=== PATIENT | male | born 1945 | race Caucasian/White ===

== ENCOUNTER 2018-10-17 05:47 | Inpatient (IN) | payer MEDICARE ==
[~2018-10-17] VITALS: Ht 182.9 cm; Wt 84.1 kg
[2018-10-17 06:36] LABS: Hemoglobin 18.6 g/dL (13.5-17.5); Mean Corpuscular HGB 29.3 pg (26.0-34.0); Mean Corpuscular HGB Conc 33.5 g/dL (31.5-36.5); Mean Corpuscular Volume 88 fL (80-100); Mean Platelet Volume 10.7 fL (9.1-12.4); Platelet Count 210 K/mm3 (150-400); RDW Coefficient Variation 12.8 % (11.7-14.2); RDW Standard Deviation 41.6 fL (35.1-46.3); Red Blood Cell Count 6.34 M/mm3 (4.30-5.90); White Blood Cell Count 11.59 K/mm3 (4.00-11.30)
[2018-10-17 06:44] LABS: Hematocrit 55.5 % (37.0-53.0)
[2018-10-17 06:49] LABS: Alanine Aminotransfer (ALT/SGP 26 U/L (12-78); Albumin, Blood 2.1 g/dL (3.4-5.0); Albumin/Globulin Ratio 0.4 (0.8-1.8); Alk Phos 77 U/L (50-136); Anion Gap 15 mmol/L (6-16); Aspartate Aminotrans (AST/SGOT 49 U/L (12-37); Blood Urea Nitrogen 29 mg/dL (8-24); Bun/Creatinine Ratio 39.3 (12.0-20.0); CO2, Blood 21 mmol/L (21-32); Calcium, Blood 9.7 mg/dL (8.5-10.1); Chloride, Blood 97 mmol/L (98-108); Creatinine, Blood 0.74 mg/dL (0.60-1.20); Globulin, Blood 4.9 g/dL (2.2-4.0); Glomerular Filtration Rate >60 (60-); Glucose, Blood 423 mg/dL (70-99); Potassium, Blood 4.7 mmol/L (3.5-5.5); Sodium, Blood 133 mmol/L (136-145)
[2018-10-17 08:03] LABS: BAND PERCENT MAN 17 % (0-8); BASOPHILS PERCENT MAN 0 % (0-2); EOSINOPHILS PERCENT MAN 0 % (0-6); LYMPHOCYTES ABSOLUTE MAN 1.62 K/mm3 (0.84-5.20); LYMPHOCYTES PERCENT MAN 14 % (21-46); MONOCYTES ABSOLUTE MAN 0.81 K/mm3 (0.16-1.47); MONOCYTES PERCENT MAN 7 % (4-13); NEUTROPHILS ABSOLUTE MAN 9.15 K/mm3 (1.96-9.15); SEG NEUTROPHILS PERCENT MAN 62 % (41-73); TOTAL CELLS COUNTED 100
--- NOTE | 2018-10-17 10:00 | NUR ---
ASSUMED CARE: PT NEW ADMIT FROM ED FOR INFECTION. VSS BUT TACHYCARDIA NOTED WITH HR IN 130S-150S. WOUND NOTED TO LEFT HEEL, MALODOROUS. SEE WOUND CARE CHARTING. DR LIND HERE TO SEE PT, PT'S ALSO AT BEDSIDE.
--- NOTE | 2018-10-17 11:30 | NUR ---
DR LIND NOTIFED REGARDING PT'S CRITICAL LACTIC ACID. DR ALSO AWARE OF INCREASED HR IN 130S-140S. DR ORDERED FOR 1L BOLUS TO BE GIVEN.
--- NOTE | 2018-10-17 12:52 | NUR ---
PT TAKEN TO MRI. CHARGE NURSE ACCOMPANYING.
--- NOTE | 2018-10-17 12:52 | NUR ---
CHARGE NURSE NOTE: PATIENT TRANSPORTED TO MRI ON MONITOR. MONITOR AND LEADS REMOVED FOR MRI. OVERHEAD LIFT USED TO TRANSFER PT TO MRI TABLE. THIS RN STANDING BY OUTSIDE THE ROOM DURING ANTICIPATED 1 HOUR MRI. FibeRio VERIFIED MRI FORM WITH PATIENT.
--- NOTE | 2018-10-17 14:46 | NUR ---
PT STATES HIS PAIN IS 6/10. MEDICATED FOR THIS. AREA ON TOP OF FOOT NOTED TO SEEM MORE BLACK IN CENTER AND AREA IN TOES BETWEEN FIRST JOINT AND FOOT IS BECOMING A DARKER RED, ALMOST BURGANDY COLOR. DISCUSSED WITH DIAGNOSTIC TECH AND CALL TO DR PERKINS WHO PLANS TO TAKE PT TO OR TOMORROW. TOLD HIM ABOUT HR AND HE STATED THAT THAT IS UP TO HOSPITALIST. CALLED DR LIND AND MADE HER AWARE AND ALSO LET HER KNOW THAT PT IS IN AFIB. STATES SHE WILL ORDER SOME MEDS FOR THIS. HR CURRENTLY IN 120S-130S. PT RESTING AT THIS TIME.
[2018-10-17 16:25] LABS: Hematocrit 44.8 % (37.0-53.0); Hemoglobin 14.8 g/dL (13.5-17.5); Mean Corpuscular HGB 29.4 pg (26.0-34.0); Mean Corpuscular Volume 89 fL (80-100); Platelet Count 265 K/mm3 (150-400); RDW Coefficient Variation 12.9 % (11.7-14.2); RDW Standard Deviation 42.3 fL (35.1-46.3); Red Blood Cell Count 5.04 M/mm3 (4.30-5.90); White Blood Cell Count 9.99 K/mm3 (4.00-11.30)
--- NOTE | 2018-10-17 16:47 | NUR ---
PT TAKEN TO OR. ACCOMPANYING. PT ESCORTED VIA BED BY CHRISTIAN HODGE.
[2018-10-17 17:00] LABS: BAND PERCENT MAN 12 % (0-8); BASOPHILS ABSOLUTE MAN 0.09 K/mm3 (0.00-0.23); BASOPHILS PERCENT MAN 1 % (0-2); EOSINOPHILS PERCENT MAN 0 % (0-6); LYMPHOCYTES % ATYPICAL MANUAL 3 % (0-0); LYMPHOCYTES ABSOLUTE MAN 1.19 K/mm3 (0.84-5.20); LYMPHOCYTES PERCENT MAN 9 % (21-46); METAMYELOCYTE ABSOLUTE MAN 0.09 K/mm3 (0.00-0.00); METAMYELOCYTE PERCENT MAN 1 % (0-0); MONOCYTES ABSOLUTE MAN 0.69 K/mm3 (0.16-1.47); MONOCYTES PERCENT MAN 7 % (4-13); NEUTROPHILS ABSOLUTE MAN 7.89 K/mm3 (1.96-9.15); SEG NEUTROPHILS PERCENT MAN 67 % (41-73); TOTAL CELLS COUNTED 100
--- NOTE | 2018-10-17 17:54 | NUR ---
10/17/18 1607 Ishan Craven PT HAD REDDED HARD SKIN RASH APPEARANCE TO THE POSTERIOR THIGH SKIN. HIS ENTIRE LEG WAS WARM TO TOUCH. AWARE OF SKIN APPEARANCE PIOR TO START OF SURGERY.
--- NOTE | 2018-10-17 18:15 | NUR ---
SHIFT SUMMARY: PT IS STILL IN OR AT THIS TIME. PT'S AND FAMILY LEFT FOR THE EVENING. AWAITING REPORT FROM OR UPON COMPLETION OF SURGERY
--- NOTE | 2018-10-17 19:29 | NUR ---
PT TO ROOM ICU 10 POST OP AT 1900. PT ARRIVES SEDATED WITH NON-REBREATHER 10L SATS 97%. CURTIS. BP STABLE. HR 130'S. PT FEBRILE WITH TEMP 100.1. DRESSING TO LLE DCI WITH NO DRAINAGE NOTED AT TIME OF INITIAL ASSESSMENT. PT SKIN PWD. PT BEGAN AWAKENING REACHING UP TO REMOVE NON-REBREATHER [id number]. NON-REBREATHER REMOVED WITH 6L VIA N/C PLACED. PT FOLLOWING COMMANDS BUT IS STIL QUIT DROWSY. PT'S SPOUSE TO BEDSIDE AT THIS TIME. DR. PERKINS NOTIFIED PER SPECIAL EDUCATION TEACHERSNAVEEN WAGONER WELL DR. FAUSTIN. DR. PERKINS TO BE NOTIFED WHEN DR. FAUSTIN TO BEDSIDE. WILL CONTINUE TO MONITOR.
--- NOTE | 2018-10-17 19:58 | NUR ---
TEMP LARRY PLACED. PT TOLERATED WELL. FAMILY BROUGHT BACK TO BEDSIDE. DR. FAUSTIN IN DEPT. CALL TO DR. VINSON PER BUSINESS SOLUTION ANALYST.
--- NOTE | 2018-10-17 20:44 | NUR ---
DR. PERKINS AND DR. FAUSTIN TO BEDSIDE. SPOKE WITH FAMILY AT 2017. PT TO TRANSFER TO HIGHER LEVEL OF CARE. FAMILY VERBALIZED UNDERSTANDING. WILL CONTINUE TO MONITOR AND PREPARE FOR TRANSFER.
--- NOTE | 2018-10-17 20:53 | NUR ---
DR. PERKINS TO BEDSIDE. SPOKE WITH FAMILY. PT TRANSFERRING TO [facility] ACCEPTING SURGEON. WILL PREPARE FOR TRANSFER.
[2018-10-17 21:19] LABS: Anion Gap 9 mmol/L (6-16); Blood Urea Nitrogen 26 mg/dL (8-24); Bun/Creatinine Ratio 40.1 (12.0-20.0); CO2, Blood 20 mmol/L (21-32); CPK Creatine Kinase 242 U/L (39-308); Calcium, Blood 8.4 mg/dL (8.5-10.1); Chloride, Blood 105 mmol/L (98-108); Creatinine, Blood 0.65 mg/dL (0.60-1.20); Glomerular Filtration Rate >60 (60-); Glucose, Blood 236 mg/dL (70-99); Magnesium, Blood 1.9 mg/dL (1.6-2.4); Phosphorus, Blood 1.5 mg/dL (2.5-4.9); Potassium, Blood 4.1 mmol/L (3.5-5.5); Sodium, Blood 134 mmol/L (136-145)
--- NOTE | 2018-10-17 21:37 | NUR ---
REACH AT BEDSIDE. DEBBY HODGE GIVEN REPORT. FAMILY UPDATED AND GIVEN MAP TO [facility]. SLIME HODGE AT [facility] GIVEN REPORT PRIOR (SEE REPORT). PT ANSWERING QUESTIONS TO FLIGHT CREW. PT GIVEN TYLENOL SUPP AND MOTA CHANGED PRIOR TO FLIGHT CREW TO BEDSIDE.
--- NOTE | 2018-10-17 21:46 | NUR ---
[facility].
== END 2018-10-17 21:46 | disposition short-term general hospital (02) | DRG 853 ==
LOC: ER 05:47 → ICUW 08:51
PROVIDERS: Emergency Medicine; Internal Medicine Critical Care Medicine; Orthopaedic Surgery; ADMIT Internal Medicine
PROC: 0Y6D0Z3 Detachment at Left Upper Leg, Low, Open Approach (ICD-10-PCS; principal; 2018-10-17 16:30)
DX: A41.9 Sepsis, unspecified organism (principal); R65.21 Severe sepsis with septic shock; M72.6 Necrotizing fasciitis; E87.1 Hypo-osmolality and hyponatremia; I48.91 Unspecified atrial fibrillation; I69.998 Other sequelae following unspecified cerebrovascular disease; E11.65 Type 2 diabetes mellitus with hyperglycemia; E86.0 Dehydration; E11.628 Type 2 diabetes mellitus with other skin complications
CPT/HCPCS: 36415; 51702; 73630; 73721; 80048; 80053; 82550; 82947; 83036; 83605; 83735; 84100; 85025; 85651; 86140; 87040; 87070; 87071; 87075; 87147; 87184; 87205; 93005; 93010; 93922; 96365; 96367; 96375; 99285-25; J1170; J2405; J2543; J2710; J3010; J3370; J7030; J7050; J7120

== ENCOUNTER → 2022-06-14 | Outpatient (CLI) | payer MEDICARE | END | disposition home or self-care (01) | LOC: LAB SHORT 15:10 → LAB 15:10 | DX: R31.9 Hematuria, unspecified (principal) | CPT/HCPCS: 87077; 87086; 87186 ==

== ENCOUNTER 2022-06-29 18:02 | Emergency (ER) | payer MEDICARE ==
[~2022-06-29] VITALS: Ht 182.9 cm; Wt 82.5 kg
[2022-06-29 18:43] LABS: BASOPHILS ABSOLUTE AUTO 0.05 K/mm3 (0.00-0.23); BASOPHILS PERCENT AUTO 1 % (0-2); EOSINOPHILS PERCENT AUTO 1 % (0-6); Hematocrit 37.2 % (37.0-53.0); IMMATURE GRAN ABSOLUTE AUTO 0.13 K/mm3 (0.00-0.10); IMMATURE GRAN PERCENT AUTO 1 % (0-1); LYMPHOCYTES ABSOLUTE AUTO 1.35 K/mm3 (0.84-5.20); LYMPHOCYTES PERCENT AUTO 12 % (21-46); MONOCYTES ABSOLUTE AUTO 0.48 K/mm3 (0.16-1.47); MONOCYTES PERCENT AUTO 4 % (4-13); Mean Corpuscular HGB 30.2 pg (26.0-34.0); Mean Corpuscular HGB Conc 34.9 g/dL (31.5-36.5); Mean Corpuscular Volume 86 fL (80-100); Mean Platelet Volume 10.6 fL (9.1-12.4); NEUTROPHILS ABSOLUTE AUTO 8.99 K/mm3 (1.96-9.15); NEUTROPHILS PERCENT AUTO 81 % (41-73); Platelet Count 276 K/mm3 (150-400); RDW Coefficient Variation 13.2 % (11.7-14.2); RDW Standard Deviation 41.5 fL (35.1-46.3); Red Blood Cell Count 4.31 M/mm3 (4.30-5.90)
[2022-06-29 18:53] LABS: Albumin, Blood 3.5 g/dL (3.4-5.0); Albumin/Globulin Ratio 0.9 (0.8-1.8); Bilirubin, Total 0.5 mg/dL (0.1-1.0); Calcium, Blood 9.2 mg/dL (8.5-10.1); Creatinine, Blood 1.53 mg/dL (0.60-1.20); Globulin, Blood 4.1 g/dL (2.2-4.0); Potassium, Blood 3.7 mmol/L (3.5-5.5); Total Protein, Blood 7.6 g/dL (6.4-8.2)
[2022-06-29 19:37] LABS: Source, Urine Foley catheter
[2022-06-29 19:49] LABS: Appearance, Urine Clear (Clear); Bilirubin, Urine Neg (Neg); Blood, Urine 3+ (Neg); Glucose Qualitative, Urine 4+ (Neg); Ketones, Urine 2+ (Neg); Leukocyte Esterase, Urine 3+ (Neg); Nitrite, Urine Pos (Neg); Protein, Urine 2+ (Neg); Urobilinogen, Urine NORM (Normal)
[2022-06-29 20:07] LABS: Color, Urine Pale Yellow (P-Yellow)
[2022-06-29 20:08] LABS: Bacteria Many /hpf; Hyaline Casts 0-2 /lpf (0-2); Squamous Epithelial Cells Rare /hpf (Few)
[2022-06-29 21:52] LABS: Base Excess Venous -9.3 mmol/L; Bicarbonate Venous 18.4 mmol/L (24.0-30.0); PCO2 Venous 24.8 mmHg (38-42)
[2022-06-29 21:54] LABS: International Normalized Ratio 1.07; Prothrombin Time Results 11.2 Sec (9.7-11.5)
[2022-06-29 22:40] LABS: Creatine Kinase MB 7.4 ng/mL (0.0-3.6); Creatine Kinase MB Index 5.6 (0.0-4.0)
== END 2022-06-30 03:00 | disposition short-term general hospital (02) ==
LOC: ER 18:02
PROVIDERS: Emergency Medicine
DX: I35.0 Nonrheumatic aortic (valve) stenosis (principal); I74.5 Embolism and thrombosis of iliac artery; I99.8 Other disorder of circulatory system; N39.0 Urinary tract infection, site not specified; I48.91 Unspecified atrial fibrillation; N18.9 Chronic kidney disease, unspecified; Z86.73 Personal history of transient ischemic attack (TIA), and cerebral infarction without residual deficits; Z88.0 Allergy status to penicillin
CPT/HCPCS: 36415; 73502; 75635; 80053; 81001; 82550; 82553; 82803; 82947; 83605; 85025; 85520; 85610; 85730; 87077; 87086; 87186; 93005; 93010; J0696; J1170; J1644; J2405; J7030; Q9967

== ENCOUNTER 2022-08-04 19:43 | Inpatient (IN) | payer MEDICARE ==
[~2022-08-04] VITALS: Ht 175.3 cm; Wt 82.2 kg
[2022-08-04 20:23] LABS: BASOPHILS ABSOLUTE AUTO 0.05 K/mm3 (0.00-0.23); BASOPHILS PERCENT AUTO 0 % (0-2); EOSINOPHILS PERCENT AUTO 0 % (0-6); Hematocrit 24.6 % (37.0-53.0); Hemoglobin 8.1 g/dL (13.5-17.5); IMMATURE GRAN ABSOLUTE AUTO 0.18 K/mm3 (0.00-0.10); IMMATURE GRAN PERCENT AUTO 1 % (0-1); LYMPHOCYTES PERCENT AUTO 2 % (21-46); MONOCYTES ABSOLUTE AUTO 0.97 K/mm3 (0.16-1.47); MONOCYTES PERCENT AUTO 4 % (4-13); Mean Corpuscular HGB 27.7 pg (26.0-34.0); Mean Corpuscular HGB Conc 32.9 g/dL (31.5-36.5); Mean Corpuscular Volume 84 fL (80-100); Mean Platelet Volume 9.6 fL (9.1-12.4); NEUTROPHILS PERCENT AUTO 93 % (41-73); Platelet Count 370 K/mm3 (150-400); RDW Coefficient Variation 15.9 % (11.7-14.2); RDW Standard Deviation 49.1 fL (35.1-46.3); Red Blood Cell Count 2.92 M/mm3 (4.30-5.90)
[2022-08-04 20:45] LABS: Albumin, Blood 1.9 g/dL (3.4-5.0); Albumin/Globulin Ratio 0.4 (0.8-1.8); Bilirubin, Total 0.8 mg/dL (0.1-1.0); Bun/Creatinine Ratio 33.6 (12.0-20.0); Creatinine, Blood 1.28 mg/dL (0.60-1.20); Globulin, Blood 4.8 g/dL (2.2-4.0); Potassium, Blood 4.2 mmol/L (3.5-5.5); Total Protein, Blood 6.7 g/dL (6.4-8.2)
[2022-08-04] MEDS ORDERED: ATOR80 PO (21:18)
[2022-08-04] MEDS ORDERED: BICALUTAMIDE50 M1 PO (21:18)
[2022-08-04] MEDS ORDERED: ASPI81CH PO (21:18)
[2022-08-04] MEDS ORDERED: JUVEN PACKET1 EAC3 PO (21:19)
[2022-08-04] MEDS ORDERED: TAMS.4ER PO (21:19)
[2022-08-04] MEDS ORDERED: SULTRIDS PO (21:19)
[2022-08-04] MEDS ORDERED: ELIQUIS5 M2 PO (21:19)
[2022-08-04] MEDS ORDERED: OXYC10TA19 PO (21:20)
[2022-08-04] MEDS ORDERED: ACET500 PO (21:20)
[2022-08-04] MEDS ORDERED: MELA3 PO (21:20)
--- NOTE | 2022-08-05 00:40 | NUR ---
PATIENT ARRIVED TO ICU 2 VIA GURNEY FROM ED. PATIENT AWAKE AND ABLE TO ASSIST SLIGHTLY WITH POSITIONING IN BED. PATIENT TRANSFERRED TO BED USING SLIDER SHEET AND PLACED ON ICU MONITORS. PICTURES OF WOUNDS OBTAINED. SMALL OPEN AREA TO RIGHT LOWER ABD, CLEANSED AND COVERED WITH FOAM DRESSING. RIGHT LEG WITH SCALING SKIN AND SEVERAL SMALL OPEN AREAS, DRESSING TO OUTER LEG REMOVED AREA PINK AND SMALL AMT OF SEROSANG DRAINAGE ON DRESSING. AREA CLEANED AND COVERED WITH FOAM DRESSING. HEAL PROTECTOR DRESSING PLACED TO RIGHT HEAL. LEFT AKA, WITH SMALL SCAB TO END OF STUMP. LARGE PURPLE, AND RED AREA WITH OPEN WOUND TO COCCYX, CLEANSED IN ED WITH NEW FOAM DRESSING. SAME DRESSING REPLACED AFTER PICTURE. PATIENT ANSWERING QUESTIONS APPROPRIATELY, YET SLIGHTLY CONFUSED AT TIMES. SEWING INSPECTOR SHOWING AFIB. LEVOPHED NEEDED FOR HYPOTENSION, NOT NEEDED AT THIS TIME. PATIENT C/O HIP PAIN WITH REPOSITIONING
[2022-08-05 01:26] LABS: Source, Urine Foley catheter
[2022-08-05 01:28] LABS: Bilirubin, Urine Neg (Neg); Blood, Urine 5+ (Neg); Glucose Qualitative, Urine Neg (Neg); Ketones, Urine Neg (Neg); Leukocyte Esterase, Urine 3+ (Neg); Nitrite, Urine Neg (Neg); Protein, Urine 2+ (Neg); Specific Gravity, Urine 1.015 (1.003-1.022); Urobilinogen, Urine NORM (Normal)
[2022-08-05 01:37] LABS: Appearance, Urine Hazy (Clear); Color, Urine Yellow (P-Yellow)
[2022-08-05 01:38] LABS: Amorphous Light (0-Heavy); Bacteria Mod /hpf; Red Blood Cells, Urine 0-2 /hpf (0-2); Renal Epithelial Few /hpf (0-Rare); Squamous Epithelial Cells Not Seen /hpf (Few); White Blood Cells, Urine 25-50 /hpf (0-5)
[2022-08-05 03:41] LABS: BASOPHILS ABSOLUTE AUTO 0.04 K/mm3 (0.00-0.23); BASOPHILS PERCENT AUTO 0 % (0-2); EOSINOPHILS PERCENT AUTO 0 % (0-6); Hemoglobin 7.8 g/dL (13.5-17.5); IMMATURE GRAN PERCENT AUTO 1 % (0-1); LYMPHOCYTES ABSOLUTE AUTO 0.88 K/mm3 (0.84-5.20); LYMPHOCYTES PERCENT AUTO 4 % (21-46); MONOCYTES ABSOLUTE AUTO 0.81 K/mm3 (0.16-1.47); MONOCYTES PERCENT AUTO 4 % (4-13); Mean Corpuscular HGB 27.8 pg (26.0-34.0); Mean Corpuscular HGB Conc 32.5 g/dL (31.5-36.5); Mean Corpuscular Volume 85 fL (80-100); Mean Platelet Volume 9.6 fL (9.1-12.4); NEUTROPHILS ABSOLUTE AUTO 19.31 K/mm3 (1.96-9.15); NEUTROPHILS PERCENT AUTO 91 % (41-73); Platelet Count 378 K/mm3 (150-400); RDW Coefficient Variation 15.8 % (11.7-14.2); RDW Standard Deviation 50.3 fL (35.1-46.3); Red Blood Cell Count 2.81 M/mm3 (4.30-5.90); White Blood Cell Count 21.14 K/mm3 (4.00-11.30)
[2022-08-05 03:58] LABS: Albumin, Blood 1.8 g/dL (3.4-5.0); Albumin/Globulin Ratio 0.4 (0.8-1.8); Bilirubin, Total 0.7 mg/dL (0.1-1.0); Bun/Creatinine Ratio 31.5 (12.0-20.0); Calcium, Blood 8.4 mg/dL (8.5-10.1); Creatinine, Blood 1.27 mg/dL (0.60-1.20); Globulin, Blood 4.9 g/dL (2.2-4.0); Potassium, Blood 4.2 mmol/L (3.5-5.5); Total Protein, Blood 6.7 g/dL (6.4-8.2)
--- NOTE | 2022-08-05 07:04 | NUR ---
SUMMARY PATIENT RESTING QUIETLY, AWAKENS TO SLIGHT STIMULI. SLIGHTLY FORGETFUL AT TIMES. WHEN RELAXED AND SLEEPING HAVING HYPOTENSION LEVOPHED 2 MCG STARTED. TEMP UP TO 102.1 EXTRA BLANKETS REMOVED AND ROOM TEMP TURNED DOWN.
[2022-08-05] MEDS ORDERED: B COMPLEX FORM0.4 MG (10:00)
[2022-08-05] MEDS ORDERED: MULVITA PO (10:01)
[2022-08-05] MEDS ORDERED: JUVEN PACKET1 EAC3 PO (10:03)
--- NOTE | 2022-08-05 10:39 | NUR ---
PT RESTING COMFORTABLY IN BED. ORIENTED TO HIS OWN NAME AMD BIRTHDATE. UNABLE TO ANSWER OTHER QUESTIONS APPROPRIATELY. IV IN RIGHT WRIST CURRENTLY RUNNING MAINTENANCE FLUIDS, NO SIGNS OF INFILTRATION, NO DRAINAGE OR LEAKING. IV IN LEFT HAND WAS LEAKING UPON ASSESSMENT, IV REMOVED. PT AT BEDSIDE, SIGNED CONSENT WITH DR TAN.
[2022-08-05] MEDS ORDERED: SENN187 PO (10:42)
--- NOTE | 2022-08-05 10:58 | NUR ---
SHIFT ASSESSMENT ASSUMED CARE OF PT @ 0700. PT ALERT AND ORIENTED TO PERSON, PLACE, AND YEAR BUT HAS INTERMITTENT CONFUSION/ DELAYED RESPONSE TO QUESTIONS. EASILY REORIENTED, COOPERATIVE WITH CARE. PT C/O SEVERE PAIN IN HIS COCCYX/ BACK. MEDICATED WITH NEWLY SCHEDULED PAIN MEDS WITH ADEQUATE RELIEF. LARGE OPEN WOUND WITH TUNNELING TO COCCYX, MEPILEX CHANGED DURING CLEANUP AND AFTER SURGEON ASSESSMENT. SURGERY SCHEDULED FOR THIS AM/ AFTERNOON. MULTIPLE OTHER SMALL WOUNDS, SEE CHART FOR DETAILS. PT ON LOW DOSE LEVOPHED IN PERIPHERAL IV IN R ARM, NSR ON THE AMERICAN INDIAN STUDIES PROFESSOR. O2 SATS >90% ON RA. TEMP PROBE LARRY CATH DRAINING YELLOW URINE. TEMP ELEVATED TO 101.4 THIS AM, COMING DOWN WITH PASSIVE COOLING, NOW 100.4. PTS BOOKER NOTIFIED OF SURGERY TODAY, SHE IS NOW AT BEDSIDE WITH PATIENT, CONTACT INFO IN CHART. WILL CONTINUE TO MONITOR CLOSELY.
--- NOTE | 2022-08-05 12:32 | NUR ---
PT TAKEN TO OR.
--- NOTE | 2022-08-05 13:29 | NUR ---
08/05/22 1329 Cassie Ramon PATIENT IS ON SCHEDULED ABX
--- NOTE | 2022-08-05 14:43 | NUR ---
PT BACK FROM OR.
[2022-08-05 15:28] LABS: Hematocrit 24.5 % (37.0-53.0); Hemoglobin 7.8 g/dL (13.5-17.5)
--- NOTE | 2022-08-05 16:30 | NUR ---
MET WITH PT, SPOUSE, BOOKER AND SON AT PT BEDSIDE. PT JUST RETURNED FROM SURGERY FOR DEBRID OF DECUB ULCER A COUPLE OF HOURS AGO. PT IS DROWSEY, COOPERATIVE INTERMITTENTLY ANSWERING QUESTIONS APPROP. PT MAIN FOCUS AT THIS TIME IS PAIN CONTROL HE HAS BEEN IN PAIN FOR A LONG TIME. PER PT FAMILY, HE JUST RECEIVED PO PAIN MEDICATION AND IS FEELING SLIGHTLY NAUSEATED. ADVISED THAT PALLIATIVE CARE WILL WORK WITH THE TEAM TO HELP MANAGE THESE SYMPTOMS. MET WITH BOOKER, PT SPOUSE OUTSIDE THE ROOM. SHE HAS QUESTIONS ABOUT WHAT TO EXPECT FROM HERE. SHE EXPLAINS THE JOURNEY HER HAS BEEN THROUGH OVER THE LAST MONTH. SHE REPORTS HE WAS VERY INDEPENDENT PRIOR TO HIS HOSPITALIZATION AT [facility] FOR THE BLOOD CLOT IN RLE WHERE HE DEVELOPED THE PRESSURE SORE AND WAS SENT TO [facility] FOR REHAB ON HIS R LEG TO GET STRONGER FOR HOPES TO RETURN CLOSE POSSIBLE TO HIS BASELINE. SHE REPORTS THAT HE HAS SAID MULTIPLE TIMES THAT HE DOES NOT WANT TO GO BACK TO [facility], WANTS TO GO HOME AND SHE DOES NOT KNOW WHAT THAT WILL MEAN OR WHAT TO EXPECT THE SURGEON TOLD HER THAT HIS WOULD MAY NEVER HEAL. SHE ASKS ABOUT COMFORT CARE AND STATTES. "I DONT KNOW REALLY WHAT COMFORT CARE IS." PROVIDED EDUCATION TO BOOKER ABOUT WHAT COMFORT CARE AND HOSPICE IS, WHAT THE CRITERIA IS AND THE FOCUS WOULD SHIFT FROM GETTING BETTER TO COMFORT AND QUALITY OF LIFE. WE ALSO DISCUSSED WHAT HOME HEALTH IS AND PROVIDED PAMPHLETS TO HER FOR BOTH PROGRAMS. BOOKER REPORTS THAT SHE AND HER HAVE NEVER DISCUSSED WHAT HIS WISHES WOULD BE ABOUT CPR, LIFE SUPPORT OR HOSPICE. I ADVISED HER THAT IT MAY BE TOO SOON TO BE MAKING THESE TYPES ON DECISIONS AT THIS POINT, BUT TO READ THIS INFORMATION SO SHE IS FAMILIAR WITH THE PROGRAMS. WE HAVE SOME TIME TO SEE HOW HER RESPONDS TO TREATMENT AND WE CAN FOCUS ON SYMPTOM MANAGEMENT FOR RIGHT NOW. BOOKER VERBALIZED UNDERSTANDING, CONTACT INFORMATION FOR PALLIATIE CARE IS PROVIDED AND ADVISED I WILL BE FOLLOWING THIS CASE AND WE CAN TALK MORE TOMORROW. FOLLOW UP WITH RN AND UPDATED HIM ON OUR CONVERSATION AND HE IS IN AGREEMENT WITH THE PLAN. ADVISED THAT THE PATIENT IS MOST CONCERNED WITH HIS PAIN AND NAUSEA. PT HAS ORDERS FOR SCHEDULED PO PAIN MEDICATION, AND PRN IV & PO PAIN MEDICATION. THE RN IS ON TOP OF HIS PAIN AND ADVISED ABOUT PT NAUSEA. PALLIATIVE CARE WILL CONTINUE TO FOLLOW AND OFFER SUPPORT.
--- NOTE | 2022-08-05 17:49 | NUR ---
SHIFT SUMMARY PT NOW ALERT AND ORIENTED, FOLLOWING COMMANDS, TALKING APPROPRIATELY WITH STAFF WITH OCCASIONAL BOUTS OF MILD DISORIENTATION. EASILY REDIRECTABLE. LEVOPHED OFF AT THIS TIME, MAP >65. PT REMAINS WEAK IN RLE, FULL FUNCTION OF UPPER EXTREMITIES. UTILIZING CALL LIGHT APPROPRIATELY. ADVANCING DIET SLOWLY, TOLERATING ICE WATER WELL, DENIES NAUSEA. PAIN AT A TOLERABLE LEVEL WITH THE ADDITION OF SCHEDULED PAIN MEDS AND PRN. COCCYX DRESSING FROM OR REMAINS CLEAN AND INTACT. TEMP PROBE LARRY DRAINING YELLOW URINE, AFEBRILE. NO BM SINCE THIS AM. PT OVERALL DOING BETTER, PLAN TO TRANSFER TO SURGICAL FLOOR.
[2022-08-06 04:40] LABS: BASOPHILS ABSOLUTE AUTO 0.05 K/mm3 (0.00-0.23); BASOPHILS PERCENT AUTO 0 % (0-2); EOSINOPHILS ABSOLUTE AUTO 0.06 K/mm3 (0.00-0.68); EOSINOPHILS PERCENT AUTO 0 % (0-6); Hematocrit 18.5 % (37.0-53.0); IMMATURE GRAN PERCENT AUTO 1 % (0-1); LYMPHOCYTES ABSOLUTE AUTO 0.97 K/mm3 (0.84-5.20); LYMPHOCYTES PERCENT AUTO 6 % (21-46); MONOCYTES ABSOLUTE AUTO 0.63 K/mm3 (0.16-1.47); MONOCYTES PERCENT AUTO 4 % (4-13); Mean Corpuscular HGB 27.4 pg (26.0-34.0); Mean Corpuscular HGB Conc 32.4 g/dL (31.5-36.5); Mean Corpuscular Volume 85 fL (80-100); Mean Platelet Volume 9.9 fL (9.1-12.4); NEUTROPHILS ABSOLUTE AUTO 14.08 K/mm3 (1.96-9.15); NEUTROPHILS PERCENT AUTO 89 % (41-73); Platelet Count 313 K/mm3 (150-400); RDW Coefficient Variation 16.1 % (11.7-14.2); RDW Standard Deviation 49.3 fL (35.1-46.3); Red Blood Cell Count 2.19 M/mm3 (4.30-5.90); White Blood Cell Count 15.89 K/mm3 (4.00-11.30)
[2022-08-06 04:57] LABS: Bun/Creatinine Ratio 31.2 (12.0-20.0); Calcium, Blood 7.7 mg/dL (8.5-10.1); Creatinine, Blood 1.41 mg/dL (0.60-1.20); Potassium, Blood 3.9 mmol/L (3.5-5.5)
--- NOTE | 2022-08-06 06:17 | NUR ---
SHIFT SUMMERY PT HAS BEEN STABLE THROUGHOUT THE NIGHT W/NO ACUTE CHANGES. HE IS S/P I&D OF SACRAL WOUND PO DAY #1. HE IS GETTING A UNIT OF PRBC R/T HEMOGLOBIN OF 6 PER MD ORDER. PT IS TOLERATING WELL AT THIS TIME. HE IS DROWSY BUT AWAKENS EASILY TO VERBAL STIMULI. HE IS CONFUSED, ORIENTED TO SELF ONLY W/CONSISTANCY. LARRY CATH INTACT PATENT AND DRAINING. PT SURGICAL DRESSING HAS SEROUS DRAINAGE NOTED. AWAITING FURTHER ORDERS FROM MD FOR WOUND CARE/DRESSING CHANGES. NO S/S OF ACUTE DISTRESS THROUGHOUT THE NIGHT.
--- NOTE | 2022-08-06 10:03 | NUR ---
PT RESTING IN BED. SLEEPS IF UNDISTURBED BUT IF AWAKE HE C/O 8/10 PAIN IN BUTTOCKS/COCCYX. SCHEDULED AND PRN MEDS GIVEN. PT A/O TO PERSON, PLACE, AND EVENTS. LARGE WOUND TO BUTTOCKS/COCCYS THAT WAS DEBRIDED YESTERDAY. WOUND CARE CONSULT PLACED. NO SIGN OF DISTRESS.
--- NOTE | 2022-08-06 12:23 | NUR ---
PT SITTING UP EATING LUNCH. FAMILY AT BEDSIDE. PT WILL BE TRANSFERING TO MEDICAL FLOOR. REPORT GIVEN TO MELBA HODGE. NO SIGN OF DISTRESS.
--- NOTE | 2022-08-06 15:35 | NUR ---
WOUND CARE WOUND PHOTO AND ASSESSMENT IN HARD CHART. WOUND CLEANSED WITH NS, REPACKED WITH WET TO DRY GAUZE, COVERED ABD. SPOKE WITH DR. TAN PLAN TO REDRESS WOUND AT 0800 AND DISCUSS PLAN. WET TO DRY GAUZE DAILY AT THIS TIME
--- NOTE | 2022-08-06 19:43 | NUR ---
SHIFT SUMMARY PT A&OX3 AND PLEASANT. PT TRANSFERED FROM ICU AT 1300. PT TRANSFERED BY LIFT. WOUND CARE NURSE AT BEDSIDE TO CHANGE DRESSING ON COCCYX AND LEFT ANKLE. PICTURES IN CHART. ABD DRESSING ON COCCYX TO BE CHANGED PRN. PHYSICAL THERAPY EVALUTED PT IN AFTERNOON. PT RESTING DURING AFTERNOON AND VERBALIZED WANTING TO SLEEP. PT DECLINED DINNER BUT TOLERATED LUNCH. PT C/O PAIN IN EVENING. MEDICATED PER EMAR. REPORT GIVEN TO SECURITY PROFESSIONALS NURSE.
[2022-08-06 22:10] LABS: Vancomycin, Trough 20.2 ug/mL (5.0-10.0)
[2022-08-07 05:11] LABS: BASOPHILS ABSOLUTE AUTO 0.03 K/mm3 (0.00-0.23); BASOPHILS PERCENT AUTO 0 % (0-2); EOSINOPHILS ABSOLUTE AUTO 0.22 K/mm3 (0.00-0.68); EOSINOPHILS PERCENT AUTO 2 % (0-6); Hematocrit 22.1 % (37.0-53.0); Hemoglobin 7.1 g/dL (13.5-17.5); IMMATURE GRAN ABSOLUTE AUTO 0.08 K/mm3 (0.00-0.10); IMMATURE GRAN PERCENT AUTO 1 % (0-1); LYMPHOCYTES ABSOLUTE AUTO 0.95 K/mm3 (0.84-5.20); LYMPHOCYTES PERCENT AUTO 8 % (21-46); MONOCYTES ABSOLUTE AUTO 0.58 K/mm3 (0.16-1.47); MONOCYTES PERCENT AUTO 5 % (4-13); Mean Corpuscular HGB 26.9 pg (26.0-34.0); Mean Corpuscular HGB Conc 32.1 g/dL (31.5-36.5); Mean Corpuscular Volume 84 fL (80-100); Mean Platelet Volume 10.1 fL (9.1-12.4); NEUTROPHILS PERCENT AUTO 85 % (41-73); Platelet Count 319 K/mm3 (150-400); RDW Coefficient Variation 16.8 % (11.7-14.2); RDW Standard Deviation 51.8 fL (35.1-46.3); Red Blood Cell Count 2.64 M/mm3 (4.30-5.90); White Blood Cell Count 12.66 K/mm3 (4.00-11.30)
[2022-08-07 05:32] LABS: Bun/Creatinine Ratio 30.6 (12.0-20.0); Calcium, Blood 7.9 mg/dL (8.5-10.1); Creatinine, Blood 1.47 mg/dL (0.60-1.20)
--- NOTE | 2022-08-07 06:20 | NUR ---
SHIFT SUMMARY PT A&O X 2 WITH MOMENTS OF CONFUSION- PT ASKED THAT I CALL BOOKER AT BEGINNING OF SHIFT- PT CONFUSED WHILE TALKING TO - SPOKE WITH BOOKER AND SHE REPORTS THAT HE HAS BEEN CONFUSED AND IS ACTUALLY LESS CONFUSED- MEDICATED PT T/O THE NIGHT WITH PAIN MEDICATION- CHANGED THE ABD BANDAGE D/T SATURATION -WITH REPOSITIONING-LARRY CARE DONE EACH TIME = LARRY DRAINING RYAN COLORED URINE PACKING IN PLACE DURING BANDAGE CHANGES. LR INFUSING AT 100-VANCOMYCIN HELD AT 2200 BY PHARMACY D/T PT VANCO THROUGH = 20.2- PT ON AIRBED, BED LOW POSITION, CALL LIGHT WITHIN REACH
--- NOTE | 2022-08-07 13:01 | NUR ---
WOUND CARE DR. BRADSHAW AT BEDSIDE 0800, PLAN TO DO A DANKINS WET TO DRY DRESSING TODAY WITH WOUND VAC PLACEMENT TOMORROW. PLAN TO USE WHITE ANTIMICROBIAL GAUZE/BLACK FOAM AIR FLUIDIZED MATTRESS ORDERED. DR. BRADSHAW STATED PT WAS OKAY UP TO CHAIR FOR MEALS AND BR. PT CONFUSED BUT TOLERATED DRESSING CHANGE
--- NOTE | 2022-08-07 16:49 | NUR ---
MET WITH PT SPOUSE, BOOKER IN ROOM WITH PT. PT IS LAYING SUPINE IN BED, ALERT, COOPERATIVE AND PLEASANTLY CONFUSED. PT WILL START TO ANSWER QUESTIONS APPROP, BUT THEN CONVERSATION WILL TURN INTO ANOTHER DIRECTION. MET WITH BOOKER OUTSIDE THE ROOM, SHE IS NOT SURE WHAT IS GOING ON OR WHAT THE POC IS FOR HER . BOOKER REPORTS PT APPEARS TO BE BETTER TODAY, LESS CONFUSED BUT SHE ADMITS HE IS STILL CONFUSED TODAY. SHE WOULD LIKE TO SEE HER GO BACK TO [facility] FOR MORE THERAPY AND "GIVE HIM A CHANCE TO HEAL AND GET BETTER." BOOKER VERBALIZES THAT SHE DOES NOT THUNK SHE COULD CARE FOR HIM AT HOME. WE DISCUSSED THE POSSABILITY OF HH AND SHE IS NOT READY FOR HOSPICE AT THIS TIME. SHE EXPRESSES MORE CONCERNS ABOUT HOW SHE WILL BE ABLE TO GET THE PT TO HIS ONCOLOGY APPOINTMENTS. I ADVISED HER THAT I WOULD TALK TO THE ASSOCIATE PROFESSOR OF FORESTRY AND WE WOULD SET UP A MEETING TOMORROW WITH BOOKER, PALLIATIVE CARE, CASE MANAGEMENT AND THE PROVIDER TO ALLOW HWE TO ASK QUESTIONS SO SHE CAN MAKE DECISIONS. CALL PLACED TO CM, DISCUSSED THE CONVERSATION ABOVE. SHE WILL FOLLOW UP WITH THE HOSPITLIST TOMORROW AND COORDINATE WITH PALLIATIVE CARE A MEETING WITH THE SPOUSE.
--- NOTE | 2022-08-07 17:01 | NUR ---
CALL PLACED TO BOOKER TO UPDATE HER ON CONVERSATION WITH CM AND PLAN FOR MEETING TOMORROW. REPORT GIVEN TO ART HODGE WHO WILL TAKE OVER AND PARTICIPATE IN FAMILY MEETING TOMORROW.
--- NOTE | 2022-08-07 17:31 | NUR ---
SHIFT SUMMARY- PT VSS. C/O PAIN SACRAL AREA, TREATED PER EMAR. RESPONDED WELL WITH CONSIST PAIN MANAGEMENT. NS RUNNING @100HR. BOTH IV PATENT. A&O X2. WOUND CLINIC TO CHANGE DRESSING TO TODAY. IV DRESSING CHANGED. APPETITE OK. RESTING NOW WITH CALL LIGHT IN REACH, SIDE RAILS UP, AND BED ALARM ON. WILL CONTINUE TO MONITOR.
--- NOTE | 2022-08-08 05:46 | NUR ---
SHIFT SUMMARY PT A&O X 2-3- PT CONFUSED AT TIMES T/O SHIFT- PT TURNED Q2H - CHANGED ABD BANDAGE X 2 - MEDICATED PT MULTIPLE TIMES FOR REPOSITIONING- MINIMAL ASSIST BY PT WHEN TURNING PT- PT ATTEMPTS BUT HAS PROBLEMS FOLLOWING DIRECTION- PT ON AIRBED, IV INFUSING WITHOUT PROBLEMS, LARRY DRAINING CLEAR YELLOW URINE- BED LOW POSITION, CALL LIGHT WITHIN REACH, BED ALARM IN PLACE
[2022-08-08 06:25] LABS: BASOPHILS ABSOLUTE AUTO 0.04 K/mm3 (0.00-0.23); BASOPHILS PERCENT AUTO 0 % (0-2); EOSINOPHILS ABSOLUTE AUTO 0.36 K/mm3 (0.00-0.68); EOSINOPHILS PERCENT AUTO 4 % (0-6); Hematocrit 22.2 % (37.0-53.0); Hemoglobin 7.2 g/dL (13.5-17.5); IMMATURE GRAN ABSOLUTE AUTO 0.16 K/mm3 (0.00-0.10); IMMATURE GRAN PERCENT AUTO 2 % (0-1); LYMPHOCYTES ABSOLUTE AUTO 0.98 K/mm3 (0.84-5.20); LYMPHOCYTES PERCENT AUTO 10 % (21-46); MONOCYTES ABSOLUTE AUTO 0.48 K/mm3 (0.16-1.47); MONOCYTES PERCENT AUTO 5 % (4-13); Mean Corpuscular HGB 27.3 pg (26.0-34.0); Mean Corpuscular HGB Conc 32.4 g/dL (31.5-36.5); Mean Corpuscular Volume 84 fL (80-100); Mean Platelet Volume 9.7 fL (9.1-12.4); NEUTROPHILS ABSOLUTE AUTO 7.88 K/mm3 (1.96-9.15); NEUTROPHILS PERCENT AUTO 80 % (41-73); Platelet Count 332 K/mm3 (150-400); RDW Coefficient Variation 16.8 % (11.7-14.2); RDW Standard Deviation 51.8 fL (35.1-46.3); Red Blood Cell Count 2.64 M/mm3 (4.30-5.90)
[2022-08-08 06:52] LABS: Iron Serum 25 ug/dL (65-175); Percent Saturation 24.5 % (20.0-50.0); Total Iron Binding Capacity 102 ug/dL (250-450)
[2022-08-08 07:23] LABS: Albumin, Blood 1.6 g/dL (3.4-5.0); Anion Gap 5 mmol/L (6-16); Blood Urea Nitrogen 46 mg/dL (8-24); Bun/Creatinine Ratio 34.8 (12.0-20.0); CO2, Blood 25 mmol/L (21-32); Calcium, Blood 7.9 mg/dL (8.5-10.1); Chloride, Blood 103 mmol/L (98-108); Creatinine, Blood 1.32 mg/dL (0.60-1.20); Ferritin, Serum 2235 ng/mL (26-388); Glomerular Filtration Rate 57 (60-); Glucose, Blood 195 mg/dL (70-99); Phosphorus, Blood 2.4 mg/dL (2.5-4.9); Sodium, Blood 133 mmol/L (136-145); Vancomycin, Trough 20.6 ug/mL (5.0-10.0)
--- NOTE | 2022-08-08 08:00 | NUR ---
pt laying in bed awake a/ox 2-3, a bit forgetful and occ confusion, very pleasant and cooperative with care, and appreciative of care, lungs are clear dim, on r/a, resp even and unlabored, no cough noted, hrr, iv to lfa site is clear and patent, iv to rwrist, did not flush and dressing half off, this was removed intact, btx4, abd flat soft nontender, voids via christian cath draining, clear yellow urine, skin has extensive wounds to coccyx, scabs on stump, wound care nurse is managing the wound, painful this am, call light in reach.
--- NOTE | 2022-08-08 13:13 | NUR ---
WOUND CARE SACRAL DRESSING CHANGED. CONTINUED DANKINS WET TO DRY. PLAN TO INITIATE WOUND VAC ON Friday08/09/22 TO INITIATE FRI, FRI, FRI CHANGE SCHEDULE. PT TOLERATED CHANGE WELL
--- NOTE | 2022-08-08 14:10 | NUR ---
Spiritual Care Visit. Pt. is awake in bed and welcomes my visit. Pt. is pleasant but displays evidence of being exhausted. Pt. verbalizes some requests to be re-adjusted, but then realized that would not be the best choice. This mica plate layer would have declined his request, but was able to establish some rapport. Pt. displayed evidence of wanting to facilitate more conversation, but also wseemed exhausted. I prayed with the Pt. Pt. verbalized gratitude for the spiritual care visit.
--- NOTE | 2022-08-08 18:09 | NUR ---
pt will be getting wound vac placed tomorrow, have medicated through the day, sleeps when left undisturbed, no further changes this shift. call light in reach.
--- NOTE | 2022-08-09 03:35 | NUR ---
SHIFT SUMMARY NO OVERNIGHT EVENTS. CONTINUES IV ABX. PT HAD X1 LOOSE STOOL, INCONTINENT. STOOL GOT ON COCCYX DRSG. CHANGED DRSG, WITH LARGE AMOUNT OF SEROSANGENOUS DRAINAGE. LARRY CATHETER IN PLACE, DRAINING YELLOW URINE. PT ORIENTED X2, PLEASANTLY CONFUSED AND COOPERATIVE. CONTINUES A2MBCOB FOR WOUND HEALING. PLAN FOR WOUND VAC TO BE PLACED TODAY. PT FORGETFUL OF CALL LIGHT, FREQUENT ROUNDING TO ASSESS NEEDS.
[2022-08-09 07:02] LABS: BASOPHILS ABSOLUTE AUTO 0.05 K/mm3 (0.00-0.23); BASOPHILS PERCENT AUTO 1 % (0-2); EOSINOPHILS ABSOLUTE AUTO 0.42 K/mm3 (0.00-0.68); EOSINOPHILS PERCENT AUTO 4 % (0-6); Hematocrit 23.9 % (37.0-53.0); Hemoglobin 7.6 g/dL (13.5-17.5); IMMATURE GRAN ABSOLUTE AUTO 0.36 K/mm3 (0.00-0.10); IMMATURE GRAN PERCENT AUTO 4 % (0-1); LYMPHOCYTES ABSOLUTE AUTO 1.27 K/mm3 (0.84-5.20); LYMPHOCYTES PERCENT AUTO 13 % (21-46); MONOCYTES ABSOLUTE AUTO 0.63 K/mm3 (0.16-1.47); MONOCYTES PERCENT AUTO 7 % (4-13); Mean Corpuscular HGB Conc 31.8 g/dL (31.5-36.5); Mean Corpuscular Volume 85 fL (80-100); Mean Platelet Volume 9.8 fL (9.1-12.4); NEUTROPHILS ABSOLUTE AUTO 6.87 K/mm3 (1.96-9.15); NEUTROPHILS PERCENT AUTO 72 % (41-73); Platelet Count 364 K/mm3 (150-400); RDW Coefficient Variation 16.6 % (11.7-14.2); RDW Standard Deviation 51.8 fL (35.1-46.3); Red Blood Cell Count 2.81 M/mm3 (4.30-5.90)
[2022-08-09 07:22] LABS: Albumin, Blood 1.6 g/dL (3.4-5.0); Anion Gap 6 mmol/L (6-16); Blood Urea Nitrogen 45 mg/dL (8-24); Bun/Creatinine Ratio 39.8 (12.0-20.0); CO2, Blood 25 mmol/L (21-32); Chloride, Blood 104 mmol/L (98-108); Creatinine, Blood 1.13 mg/dL (0.60-1.20); Glomerular Filtration Rate 68 (60-); Glucose, Blood 187 mg/dL (70-99); Phosphorus, Blood 2.4 mg/dL (2.5-4.9); Potassium, Blood 3.7 mmol/L (3.5-5.5); Sodium, Blood 135 mmol/L (136-145)
--- NOTE | 2022-08-09 11:04 | NUR ---
WOUND CARE WOUND CLEANSED WITH NS. ONE PIECE OF ADAPTIC PLACED OVER SACRUM. TWO PIECES OF KIRLIX WHITE ANTIMICROBIAL GAUZE TO UNDERMINING AND WOUND BED, COVERED BY ONE PIECE OF BLACK FOAM. SKIN PREP TO NICOLE-WOUND. CERA RING TO COCCYX TO HELP WITH SEAL. WOUND WINDOW PANED WITH TRANSPARENT FILM. HOLLAND & NEPHEW WOUND VAC PLACED SET TO CONTINUOUS 120 MMHG. SEAL ACHIEVED. PT TOLERATED WELL
--- NOTE | 2022-08-09 12:29 | NUR ---
CALL PLACED TO BOOKER, PT SPOUSE TO DISCUSS THEIR WISHES AND DISCHARGE PLAN. BOOKER REPORTS SHE IS FEELING OVERWHELMED AND DOESNT KNOW WHAT TO DO. SHE REPORTS INITIALLY SHE HAD DECIDED TO HAVE HER SENT TO [facility] IN [place] BUT CHANGEDS HER MIND IT WAS TOO FAR AWAY AND THE PT DIDNT WANT TO GO TO [place]. BOOKER AGAIN VERBALIZES THAT SHE IS NOT READY FOR HOSPICE, HER IS STILL REFUSING TO GO TO [facility] BUT SHE CANNOT CARE FOR HIM AT HOME. WE DISCUSS WHAT HER GOALS ARE AND SHE WANTS TO GIVE HER A CHANCE TO GET MORE THERAPY AND TO TRY TO LET HIS WOUND HEAL. WE DISCUSS THE OPTIONS OF HOME HEALTH AND GOING BACK TO A SNF. WE DISCUSS THAT HH WILL MAKE WEEKLY VISITS FROM ATLEAST THE RN AND THERAPIST, LIKELY 2-3 TIMES A WEEK TO MANAGE HIS WOUND AND THERAPY. HOWEVER, SHE WOULD HAVE TO OFFER CARE THE REST OF THIE TIME IN ADDITION TO MANAGING HIS PAIN. SHE REPORTS SHE DOESNT THINIK THIS WILL BE ENOUGH SUPPORT AND AGREES THAT HE WOULD LIKELY END UP BACK IN THE HOSPITAL. WE THEN DISCUSSED WHAT CARE THE PT WOULD GET IF HE WENT BACK TO [facility]. ADVISED HE WOULD HAVE 24 HOUR NURSING CARE TO MANAGE HIS WOUND AND SYMPTOMS/PAIN IN ADDITION TO THERAPY ATLEAST 5X A WEEK DEPENDING ON HOW WELL HE TOLERATES IT. OFFERED SUPPORT TO HER AND EMAPTHY THAT THIS IS A VERY TOUGH DECISION, AND IF THEIR GOALS IS TO WORK ON GETTING STONGER WHERE THE PT CAN ATLEAST GET BACK INTO A , SNF WITH REHAB IS LIKELY THE BEST CHOICE. BOOKER AGREES VERBALIZES THAT SHE WOULD LIKE HER TO GO BACK TO [facility], BUT IS NOT SURE HER WILL CONSENT. I ADVISED HER I AM HAPPY TO TALK TO HIM AND I WILL LET HER KNOW HOW THE CONVERSATION GOES. MET WITH PT, HE IS LAYING ON HIS R SIDE ON BED, PT'S BED IS REPOSITIONED SO HE CAN SEE THE TV. CALL LIGHT AND BEDSIDE TABLE REPOSITONED SO PT CAN REACH. PT REPORTS HE IS CONSTANTLY BELCHING AND APPOLOGIZES, HE THEN STARTS TO VOMIT THICK, STRINGY YELLOW EMESIS. PT GIVEN EMESIS BAG AND A WET CLOTH, WILL NOTIFY THE RN. I ASKED THE PT HOW ARE THINGS GOING AND HE DESCRIBES THE JOURNEY HE HAS BEEN THROUGH IN THE LAST MONTH WHEN HE FIRST DEVELOPED THE CLOT ON HIS RLE AND ENDED UP AT [facility]. DURING OUR CONVERSATION, PT APPEARS TO BE CLEARER TODAY THAN HE WAS A COUPLE OF DAYS AGO AND IS ANSWERING QUESTIONS APPROP. WE CONTINUED TO DISCUSS WHAT HIS NEEDS ARE RIGHT NOW TODAY, PAIN MANAGEMENT, NEEDS TO GET STRONGER WITH PT/OT AND THE WOUND ON HIS BACKSIDE NEEDS CARE. I ADVISED HIM THAT I HAVE BEEN COMMUNICATING QUITE A BIT WITH HIS , BOOKER AND SHE FEELS THAT RIGHT NOW HE NEEDS MORE CARE THAN SHE IS ABLE TO PROVIDE AT HOME AND SHE IS AFRAID IF HE RETURNS HOME NOW HER WILL SUFFER AND LIKELY RETURN TO THE [facility]. KORY AGREES AND KNOWS THAT THIS IS TOO MUCH FOR HIS IN ADDITION TO TAKING CARE OF ALL THE ANIMALS AND THEIR PROPERTY. I ASKED THE PT IF HE WOULD BE AGREEABLE TO RETURNING TO A SNF AND HE SAYS, "YES." i ADVISED HIM THAT [facility] HAS ALREADY ACCEPTED HIM TO GO BACK, IF HE IS WILLING AND HE STATES, "YES, I WILL GO BACK TO [facility]. BUT NOT UNTIL TOMORROW." I ADVIUSE HIM THAT I THINK THE PLAN IS TO DC HIM TODAY AND ASKED WHY HE DOESNT WANT TO BE DCD UNTIL TOMORROW, HE REPORTS HE JUST WANTED TO BE A LITTLE BUT STRONGER BEFORE HE GOES. I OFFERED EMPATHY AND AGREED THAT I WOULD PROBABLY FEEL THE SAME, BUT REALISTICALLY, ITS GOING TO TAKE MANY DAYS OR WEEKS WITH THE GOAL TO POTENTIALLY REGAIN HIS STRENGTH AND THE BEST WAY TO WORK ON THAT IS TO RETURN TO [facility] AND PARTICIPATE IN THEIR REHAB PROGRAM. ADVISED HIS RECOVERY IS NOT GOING TO HAPPEN OVERNIGHT AND WILL TAKE A LOT OF WORK AND ENERGY. PT AGAIN AGREES AND STATES, "YES, I AGREE TO BE DC TODAY AND GO BACK TO [facility]." I ADVISED WILL THAT I WILL CALL BOOKER TO LET HER KNOW IN ADDITION TO THE CATTLE SORTER TO ARRANGE TRANSPORT. CALL PLACED TO BOOKER AND UPDATED HER ON MY CONVERSATION WITH HER AND THAT HE HAS AGREED TO GO BACK TO [facility] TODAY. SHE IS VERY APPRECIATIVE FOR ALL OUR HELP AND IS HAPPY THAT HER HAS AGREED WITH THIS DC PLAN. CALL PLACED TO JANNETTE, UPDATED HER ON RECENT CONVERSATION WITH PT AND SPOUSE AND ADVISED PT/SPOUSE HAVE CONSENTED TO GO TO [facility] TODAY.
[2022-08-09 13:36] LABS: SARS-Cov-2 (COVID-19) Antigen Negative (NEGATIVE)
[2022-08-09] MEDS ORDERED: VITAMIN C500 M3 PO (14:18)
[2022-08-09] MEDS ORDERED: MEROPENEM1 G1 IV (14:33)
[2022-08-09] MEDS ORDERED: VISBIOME 112.51 EACH PO (14:36)
[2022-08-09] MEDS ORDERED: OXYCONTIN10 MG PO (14:40)
[2022-08-09] MEDS ORDERED: LIQUACEL PO (14:44)
--- NOTE | 2022-08-09 18:01 | NUR ---
SHIFT SUMMARY PT RESTING QUIETLY AT START OF SHIFT. WOKE EASILY FOR CARE. PT REPOSITIONED OFF BUTTOCKS D/T SACRAL WOUND. PT ABLE TO EAT BREAKFAST AND TAKE PO MEDS WITHOUT DIFFICULTY. PT IS CONFUSED AND FORGETFUL. DIGITAL MARKETING EXECUTIVE TO TO PLACE WOUND VAC. INSTRUCTIONS WRITTEN OUT FOR [facility] TO GIVE IN REPORT. PT WAS TO HAVE D/C'D TODAY. [facility] DID NOT CALL BACK WITH NEW INSURANCE APPROVAL. P/G PLACED TO [facility] FOR CONTINUED IV ABX AT [facility]. PT WITH CHRONIC LARRY, LEAKING THIS EVENING. FLUID IN BALLOON CK'D; WNL'S. PT C/O NAUSEA AFTER LIQUID VITAMINS AND LIQUID PROTIEN. DR CRAWFORD NOTIFIED FOR ZOFRAN; GIVEN PER EMAR. PT LATER THIS EVENING C/O ACID REFLUX. PT RESTING QUIETLY AT THIS TIME. WILL CONTINUE TO MONITOR AND REPORT TO ONCOMING RN. CALL LT IN REACH.
--- NOTE | 2022-08-09 19:19 | NUR ---
1910 arrived at shift change to pt vomitting coffee ground emesis. administered prn lenore. pagelacy khan operations and maintenance technician. see nnew orders
--- NOTE | 2022-08-10 03:27 | NUR ---
SHIFT SUMMARY NO MORE EMESIS SINCE INITIAL AT SHIFT START. NO OTHER S/S OF BLEEDING. WOUND VAC IN PLACE TO COCCYX, SMALL OUTPUT IN CANISTER. LARRY CATHETER IN PLACE, NOTED TO BE LEAKING AT SHIFT START. MANIPULATION OF CATHETER AND BALLOON, CATHETER NOW DRAINING WELL WITH NO LEAKING. R POWERGLIDE IN PLACE, FLUSHING AND DRAWING BACK BLOOD. PT REPORTING PAIN TO COCCYX/BACK, SEE MAR FOR PAIN MEDICATION ADMINISTERATION. CONTINUES [id number]. CONTINUES IV ABX. CALL LIGHT IN REACH, PT NEEDS FREQUENT ROUNDING TO ASSIST WITH NEEDS.
--- NOTE | 2022-08-10 04:56 | NUR ---
LARRY CATHETER LEAKING AGAIN THIS MORNING. REPLACED LARRY. 400ML OF CLOUDY YELLOW URINE RETURN. RC BAG DATED WHEN INSERTED.
[2022-08-10 05:07] LABS: BASOPHILS ABSOLUTE AUTO 0.03 K/mm3 (0.00-0.23); BASOPHILS PERCENT AUTO 0 % (0-2); EOSINOPHILS PERCENT AUTO 2 % (0-6); Hematocrit 20.6 % (37.0-53.0); Hemoglobin 6.6 g/dL (13.5-17.5); IMMATURE GRAN ABSOLUTE AUTO 0.27 K/mm3 (0.00-0.10); IMMATURE GRAN PERCENT AUTO 3 % (0-1); LYMPHOCYTES ABSOLUTE AUTO 1.17 K/mm3 (0.84-5.20); LYMPHOCYTES PERCENT AUTO 11 % (21-46); MONOCYTES ABSOLUTE AUTO 0.54 K/mm3 (0.16-1.47); MONOCYTES PERCENT AUTO 5 % (4-13); Mean Corpuscular HGB 26.9 pg (26.0-34.0); Mean Corpuscular Volume 84 fL (80-100); Mean Platelet Volume 9.9 fL (9.1-12.4); NEUTROPHILS PERCENT AUTO 80 % (41-73); Platelet Count 331 K/mm3 (150-400); RDW Coefficient Variation 16.7 % (11.7-14.2); RDW Standard Deviation 51.2 fL (35.1-46.3); Red Blood Cell Count 2.45 M/mm3 (4.30-5.90); White Blood Cell Count 10.91 K/mm3 (4.00-11.30)
[2022-08-10 16:03] LABS: Hematocrit 23.5 % (37.0-53.0); Hemoglobin 7.6 g/dL (13.5-17.5)
--- NOTE | 2022-08-10 17:52 | NUR ---
SHIFT SUMMARY- PT SLEEPY TODAY. WOUND VAC INTACT DRAINING LIGHT BROWN (TEA COLOR) FLUID. BANDAGE C/D/I. IV REPLACED, POWERGLIDE POSITIONAL. PT TOLERATED UNIT OF BLOOD. STATED HE FELT BETTER AFTER BLOOD. APPETITE POOR. C/O PAIN, MANAGED PER EMAR STAYING CLOSE TO SCHEDULE POSSIBLE. A@O X2, MOMENTS OF CONFUSION. PT PLEASANT AND COMPLIANT WITH ALL CARE. WILL CONTINUE TO MONITOR. SIDE RAILS UP, BED ALARM ON, CALL LIGHT IN REACH.
--- NOTE | 2022-08-11 03:50 | NUR ---
SHIFT SUMMARY NO OVERNIGHT EVENTS. NO FURTHER EMESIS, NO S/S OF BLEEDING. PROTONIX GTT CONTINUES. IV ABX CONTINUES. WOUND VAC IN PLACE, FUNCTIONING WELL, MODERATE SEROSANGENOUS OUTPUT. LARRY CATHETER DRAINING YELLOW URINE. PT ORIENTED X2, PLEASANT AND CALM. PT SLEPT WELL. CALL LIGHT IN REACH, FREQUENT ROUNDING TO ASSIST IN PT NEEDS.
[2022-08-11 05:35] LABS: BASOPHILS ABSOLUTE AUTO 0.03 K/mm3 (0.00-0.23); BASOPHILS PERCENT AUTO 0 % (0-2); EOSINOPHILS ABSOLUTE AUTO 0.54 K/mm3 (0.00-0.68); EOSINOPHILS PERCENT AUTO 6 % (0-6); Hematocrit 22.9 % (37.0-53.0); Hemoglobin 7.4 g/dL (13.5-17.5); IMMATURE GRAN ABSOLUTE AUTO 0.41 K/mm3 (0.00-0.10); IMMATURE GRAN PERCENT AUTO 4 % (0-1); LYMPHOCYTES ABSOLUTE AUTO 1.33 K/mm3 (0.84-5.20); LYMPHOCYTES PERCENT AUTO 14 % (21-46); MONOCYTES ABSOLUTE AUTO 0.75 K/mm3 (0.16-1.47); MONOCYTES PERCENT AUTO 8 % (4-13); Mean Corpuscular HGB 27.5 pg (26.0-34.0); Mean Corpuscular HGB Conc 32.3 g/dL (31.5-36.5); Mean Corpuscular Volume 85 fL (80-100); Mean Platelet Volume 9.9 fL (9.1-12.4); NEUTROPHILS ABSOLUTE AUTO 6.81 K/mm3 (1.96-9.15); NEUTROPHILS PERCENT AUTO 69 % (41-73); Platelet Count 305 K/mm3 (150-400); RDW Coefficient Variation 16.6 % (11.7-14.2); RDW Standard Deviation 51.5 fL (35.1-46.3); Red Blood Cell Count 2.69 M/mm3 (4.30-5.90); White Blood Cell Count 9.87 K/mm3 (4.00-11.30)
[2022-08-11 06:36] LABS: Bun/Creatinine Ratio 37.6 (12.0-20.0); Calcium, Blood 7.8 mg/dL (8.5-10.1); Creatinine, Blood 0.93 mg/dL (0.60-1.20); Potassium, Blood 3.8 mmol/L (3.5-5.5)
--- NOTE | 2022-08-11 17:57 | NUR ---
PATIENT IS ALERT AND ORIENTED WITH SOME MILD CONFUSION AT TIMES. HE IS VERY PAINFUL, PAIN MEDICATIONS PER EMAR. IV ANTIBIOTICS. PROTONIX DRIP. CHRONIC LARRY IN PLACE AND DRAINING CLEAR YELLOW URINE. WOUND VAC IN PLACE ON SACRUM AND FUNCTIONING APPROPRIATELY. RLE IS DUSKY AND SCALY. BOOT IN PLACE TO PROTECT HEEL. EGG CRATE ON THE PATIENT'S BED. Q2H TURNS WITH PILLOWS. PATIENT WAS LIFTED TO THE RECLINER FOR PT. HE DID NOT TOLERATE THE RECLINER WELL AND WAS TRANSFERRED BACK WITHIN A FEW MINUTES. PATIENT IS TOLERATING A MECHANICAL SOFT DIET. NO C/O OF N/V. PLAN IS FOR DC TO [facility] TOMORROW.
[2022-08-12 04:10] LABS: BASOPHILS ABSOLUTE AUTO 0.03 K/mm3 (0.00-0.23); BASOPHILS PERCENT AUTO 0 % (0-2); EOSINOPHILS ABSOLUTE AUTO 0.51 K/mm3 (0.00-0.68); EOSINOPHILS PERCENT AUTO 6 % (0-6); Hematocrit 23.1 % (37.0-53.0); Hemoglobin 7.5 g/dL (13.5-17.5); IMMATURE GRAN ABSOLUTE AUTO 0.39 K/mm3 (0.00-0.10); IMMATURE GRAN PERCENT AUTO 4 % (0-1); LYMPHOCYTES ABSOLUTE AUTO 1.51 K/mm3 (0.84-5.20); LYMPHOCYTES PERCENT AUTO 17 % (21-46); MONOCYTES ABSOLUTE AUTO 0.61 K/mm3 (0.16-1.47); MONOCYTES PERCENT AUTO 7 % (4-13); Mean Corpuscular HGB 27.8 pg (26.0-34.0); Mean Corpuscular HGB Conc 32.5 g/dL (31.5-36.5); Mean Corpuscular Volume 86 fL (80-100); Mean Platelet Volume 9.6 fL (9.1-12.4); NEUTROPHILS ABSOLUTE AUTO 5.91 K/mm3 (1.96-9.15); NEUTROPHILS PERCENT AUTO 66 % (41-73); Platelet Count 274 K/mm3 (150-400); RDW Coefficient Variation 16.6 % (11.7-14.2); RDW Standard Deviation 51.8 fL (35.1-46.3); White Blood Cell Count 8.96 K/mm3 (4.00-11.30)
--- NOTE | 2022-08-12 04:24 | NUR ---
SHIFT SUMMARY NO OVERNIGHT EVENTS. PT ORIENTED X2, VERY PLEASANT. BEDREST, CONTINUES [id number] ALTHOUGH PT REFUSED SOME OF HIS TURNS TONIGHT. WOUND VAC IN PLACE TO COCCYX, FUNCTIONING WELL. REPORTS PAIN TO BACK/HIP/SACRAL AREA, ADMINISTERED PRN OXYCODONE X1. NO S/S OF BLEEDING, H&H STABLE TO MORNING. PROTONIX GTT STOPPED AND STARTED ORAL. LARRY IN PLACE, DRAINING WELL. CALL LIGHT IN REACH, FREQUENT ROUNDING TO ASSIST WITH PT NEEDS.
[2022-08-12 04:31] LABS: Bun/Creatinine Ratio 36.6 (12.0-20.0); Calcium, Blood 7.9 mg/dL (8.5-10.1); Creatinine, Blood 0.96 mg/dL (0.60-1.20)
--- NOTE | 2022-08-12 17:16 | NUR ---
ATTEMPTED VISIT WITH PT, HE WAS ASLEEP AND DIDNT WANT TO DISTUB HIM. PT APPREARED TO BE MUCH MORE COMF TODAY COMPARED TO LAST WEEK, PT FACE RELAXED AND BREATHING EVEN AND UNLABORED. STILL AWAITING PA TO TRANFER PT TO [facility] TO CONTINUE REHAB AND THERAPY. CALL PLACED TO PT SPOUSE, BOOKER TO SEE HOW SHE IS DOING. SHE HAS BEEN SICK AND REPORTS SHE IS FEELING MUCH BETTER AND WAS ABLE TO VISIT THE PT TODAY. UPDATED HER ON WHAT THE DELAY IS FOR GETTING HER TRANSFERRED BACK TO [facility]. BOOKER IS VERY APPRECIATIVE OF THIS UPDATE SHE WAS NOT CLEAR ON WHY THERE WAS A DELAY. ADVISED HER THAT PER RECENT CM NOTES. LOOKS LIKE POSS TRANSFER TO [facility] TOMORROW. WILL SPEAK TO CM IN THE AM AND KEEP HER UPDATED. WILL CONT TO FOLLOW AND PROVIDE SUPPORT.
--- NOTE | 2022-08-12 18:30 | NUR ---
SHIFT SUMMARY A&O X 3. VSS. PT PARTICIPATED WITH OT & PT TODAY. MEDICATED FOR C/O BACK PAIN PER EMAR WITH GOOD EFFECT. WOUND VAC INTACT AND PATENT, NO LEAKS NOTED. F/C INTACT & PATENT DRAINING YELLOW URINE. IS PLEASANT & COOPERATIVE WITH ALL CARE. PT ANTICIPATES DC TO SNF TOMORROW.
--- NOTE | 2022-08-12 20:00 | NUR ---
PATIENT REFUSED TO LET THIS RN TURN TO ASSESS SKIN AND WOUND VAC. EDUCATED ON RISKS, PATIENT VERBALIZED UNDERSTANDING BUT "DOESNT WANT THE PAIN THAT MOVING CAUSES".
--- NOTE | 2022-08-13 03:47 | NUR ---
REPRODUCTION ARTIST SUMMARY VSS. WOUND VAC IN USE. ANTIBIOTICS INFUSING ORDERED - SEE MAR FOR DETAILS. HAS BEEN RESTING QUIETLY WITH FEW INTERRUPTIONS. CALL LIGHT IN REACH. WILL CONTINUE TO MONITOR
[2022-08-13 05:14] LABS: Hematocrit 27.6 % (37.0-53.0); Hemoglobin 8.8 g/dL (13.5-17.5); Mean Corpuscular HGB 27.2 pg (26.0-34.0); Mean Corpuscular HGB Conc 31.9 g/dL (31.5-36.5); Mean Corpuscular Volume 85 fL (80-100); Mean Platelet Volume 9.8 fL (9.1-12.4); Platelet Count 281 K/mm3 (150-400); RDW Coefficient Variation 16.7 % (11.7-14.2); Red Blood Cell Count 3.23 M/mm3 (4.30-5.90); White Blood Cell Count 9.77 K/mm3 (4.00-11.30)
[2022-08-13 05:40] LABS: Bun/Creatinine Ratio 40.9 (12.0-20.0); Calcium, Blood 7.9 mg/dL (8.5-10.1); Creatinine, Blood 0.95 mg/dL (0.60-1.20); Potassium, Blood 4.3 mmol/L (3.5-5.5)
--- NOTE | 2022-08-13 11:03 | NUR ---
COVID TEST NASAL SWAB FOR COVID TEST FOR TRANSFER TO SNF HAS BEEN COLLECTED AND SENT. REULTS PENDING. PT TO GO TO [facility] TODAY. [employer] SUPER[employer]OR TIME 1130. WOUND VAC CANISTER CHANGED.
[2022-08-13 11:05] LABS: Influenza A, PCR NEGATIVE (NEGATIVE); Influenza B, PCR NEGATIVE (NEGATIVE); Resp Syncytial Virus, PCR NEGATIVE (NEGATIVE); SARS-Cov-2 (COVID-19) PCR, MMC NEGATIVE (NEGATIVE)
--- NOTE | 2022-08-13 11:30 | NUR ---
PIV DC'D WITH CATH TIP INTACT, NO REDNESS OR SWELLING NOTED.
--- NOTE | 2022-08-13 11:31 | NUR ---
POWER GLIDE IN R UPPER ARM TO REMAIN FOR TRANSFER TO [facility]. PT WILL CONTINUE WITH IV ANTI BIOTICS AT [facility].
[2022-08-13] MEDS ORDERED: LANTUS SOL100 UNIT/1 SC (12:09)
[2022-08-13] MEDS ORDERED: LINE600 PO (12:11)
[2022-08-13] MEDS ORDERED: FLAGYL500 M1 PO (12:12)
[2022-08-13] MEDS ORDERED: PANT40 PO (12:13)
--- NOTE | 2022-08-13 12:48 | NUR ---
DC TO [facility] AT 1240 PT TO [facility] VIA GURNEY TRANSFER WITH WOUND VAC SUPPLIES. PT ALSO GOING WITH F/C. POWER GLIDE DC'D WITH CATH TIP INTACT, NO REDNESS OR SWELLING NOTED. IV ANTI BIOTICS CHANGED TO PO. HARD COPY SCRIPTS FOR PAIN MEDS IN TRANSFER PKT. REPORT CALLED TO [facility].
== END 2022-08-13 12:31 | DRG 853 ==
LOC: ER 19:43 → ICUE 23:29 → ICUW 23:29 → ICUE 08-05 00:29 → MEDS 08-06 12:53
PROVIDERS: Internal Medicine; Student in an Organized Health Care Education/Training Program; Surgery; ADMIT Family Medicine
PROC: 3E03329 Introduction of Other Anti-infective into Peripheral Vein, Percutaneous Approach (ICD-10-PCS; 2022-08-04)
PROC: 0KBP0ZZ Excision of Left Hip Muscle, Open Approach (ICD-10-PCS; 2022-08-05)
PROC: 0KBN0ZZ Excision of Right Hip Muscle, Open Approach (ICD-10-PCS; 2022-08-05)
PROC: 30233N1 Transfusion of Nonautologous Red Blood Cells into Peripheral Vein, Percutaneous Approach (ICD-10-PCS; principal; 2022-08-05 10:30)
PROC: 3E033XZ Introduction of Vasopressor into Peripheral Vein, Percutaneous Approach (ICD-10-PCS; 2022-08-05 10:30)
DX: A41.81 Sepsis due to Enterococcus (principal); G92.8 Other toxic encephalopathy; L89.153 Pressure ulcer of sacral region, stage 3; R65.21 Severe sepsis with septic shock; M72.6 Necrotizing fasciitis; K92.0 Hematemesis; E87.1 Hypo-osmolality and hyponatremia; D62 Acute posthemorrhagic anemia; A41.02 Sepsis due to Methicillin resistant Staphylococcus aureus; Z51.5 Encounter for palliative care; A41.4 Sepsis due to anaerobes; D63.1 Anemia in chronic kidney disease; N18.30 Chronic kidney disease, stage 3 unspecified; E11.22 Type 2 diabetes mellitus with diabetic chronic kidney disease; M79.81 Nontraumatic hematoma of soft tissue; E11.51 Type 2 diabetes mellitus with diabetic peripheral angiopathy without gangrene; I48.91 Unspecified atrial fibrillation; E86.0 Dehydration; K44.9 Diaphragmatic hernia without obstruction or gangrene; B02.9 Zoster without complications; Z20.822 Contact with and (suspected) exposure to COVID-19; Z88.0 Allergy status to penicillin; Z79.82 Long term (current) use of aspirin; Z79.02 Long term (current) use of antithrombotics/antiplatelets; Z79.891 Long term (current) use of opiate analgesic; Z79.01 Long term (current) use of anticoagulants; Z86.73 Personal history of transient ischemic attack (TIA), and cerebral infarction without residual deficits; Z85.46 Personal history of malignant neoplasm of prostate; Z86.718 Personal history of other venous thrombosis and embolism; Z89.612 Acquired absence of left leg above knee; Z79.899 Other long term (current) drug therapy; Z95.828 Presence of other vascular implants and grafts; Z87.891 Personal history of nicotine dependence
CPT/HCPCS: 0241U; 36415; 36430; 51702; 74177; 80048; 80053; 80069; 80202; 81001; 82271; 82607; 82728; 82746; 82947; 83540; 83550; 83605; 85014; 85018; 85025; 85027; 86850; 86900; 86901; 86923; 87040; 87070; 87075; 87076; 87077; 87086; 87185; 87186; 87205; 87426; 88305; 96365-59; 96366-59; 96367-59; 96375-59; 97110; 97163; 97166; 97530; 99285-25; A9270; C1751; C9113; C9803; J1170; J1815; J2185; J2370; J2405; J2543; J2704; J3010; J3370; J7030; J7050; J7060; J7120; P9016; Q9967

== ENCOUNTER 2022-08-26 02:39 | Day surgery (SDC) | payer MEDICARE ==
[~2022-08-26 02:39] MED LIST: ACET500 PO; ASPI81CH PO; ATOR80 PO; B COMPLEX FORM0.4 MG; BICALUTAMIDE50 M1 PO; ELIQUIS5 M2 PO; FLAGYL500 M1 PO; JUVEN PACKET1 EAC3 PO; LANTUS SOL100 UNIT/1 SC; LINE600 PO; LIQUACEL PO; MELA3 PO; MEROPENEM1 G1 IV; MULVITA PO; OXYC10TA19 PO; OXYCONTIN10 MG PO; PANT40 PO; SENN187 PO; SULTRIDS PO; TAMS.4ER PO; VISBIOME 112.51 EACH PO; VITAMIN C500 M3 PO
== END 2022-08-26 23:04 | disposition home or self-care (01) ==
LOC: WOUND 02:39
DX: L89.154 Pressure ulcer of sacral region, stage 4 (principal); L89.512 Pressure ulcer of right ankle, stage 2; E11.621 Type 2 diabetes mellitus with foot ulcer; L97.512 Non-pressure chronic ulcer of other part of right foot with fat layer exposed
CPT/HCPCS: A9270; G0463